=== PATIENT | female | born 1985 | race Caucasian/White ===

== ENCOUNTER 2021-07-03 12:54 | Emergency (ER) | payer BC, SELFPAY ==
[2021-07-03] VITALS (20 sets, daily range): BP systolic 101–127; BP diastolic 57–83; PULSE 83–116; RESP 11–29; TEMP 36.8–36.9; O2SAT 95–100
--- NOTE | 2021-07-03 14:19 | ECG_ITS ---
Measurements Intervals [place] Rate: 90 P: 77 MO: 140 QRS: 77 QRSD: 89 T: 17 QT: 386 QTc: 474 Interpretive Statements SINUS RHYTHM POSSIBLE LEFT ATRIAL ENLARGEMENT INCOMPLETE RIGHT BUNDLE BRANCH BLOCK BORDERLINE T WAVE ABNORMALITY- INFERIOR LEADS BORDERLINE ECG Electronically Signed On 07-03-2021 15:08:35 CDT by Henry Valiente D.O.
--- NOTE | 2021-07-03 16:06 | ED.SYNCOPE ---
HPI - Syncope General Chief Complaint: Syncope Stated Complaint: PASSED OUT DURING BLOOD DRAW Time Seen by Provider: 07/03/21 15:25 Source: patient and RN notes reviewed Mode of arrival: ambulatory Limitations: no limitations History of Present Illness HPI narrative: This is a 35 year old female who presents for evaluation of a syncopal episode . 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 She was getting labs drawn when she develop lightheadedness, nausea, flushing and she passed out. She states when she came to EMS had already arrived. She denies history of syncope. She denies chest pain, shortness of breath, nausea, vomiting, abdominal pain. Her last menstrual period was 2 weeks ago and she reports it was heavier than normal. She denies dizziness currently. She is tachycardic but she reports her heart rate is elevated because she is nervous about having blood drawn. Patient admits she has not eaten today. Related Data Home Medications Medication Instructions Recorded Confirmed levothyroxine 75 mcg PO DAILY 07/03/21 Allergies Allergy/AdvReac Type Severity Reaction Status Date / Time amoxicillin Allergy Rash Verified 07/03/21 15:24 Penicillins Allergy Rash Verified 07/03/21 15:24 Review of Systems Review of Systems: All systems reviewed & are unremarkable except as noted in HPI and below PMFSH Past Medical History Medical History (Updated 07/03/21 @ 17:09 by Brittany Patterson MD) Patient denies medical problems Surgical History Surgical History (Updated 07/03/21 @ 17:06 by Brittany Patterson MD) No pertinent past surgical history Social History Social History (Updated 07/03/21 @ 17:06 by Brittany Patterson MD) Smoking status: Never smoker Exam Const: General: no acute distress and alert Orientation/consciousness: patient oriented x3 Eyes: EOM: EOMs intact bilaterally Resp: Effort & Inspection: normal respiratory effort and no retractions Auscultation: clear to auscultation bilaterally Cardio: Rate: tachycardic Rhythm: regular rhythm Heart sounds: no murmurs GI: GI Palp: Yes Soft to palpation, No Tenderness to palpation present (GI) and No Guarding due to palpation present (GI) Auscultation: normal bowel sounds Back/Spine/Pelvis: Back: no CVA tenderness Skin: General skin exam: normal color Rashes: no rashes Neuro: General: patient oriented x3, moves all extremities and CN's II-XI intact bilaterally Extrem: General: normal to inspection Psych: Mental Status: mental status grossly normal Affect: normal affect Course Reevaluation(s) Reevaluation #1: PAtient has no complaints. HR has decreased to 87 after IVF. She likely vasovagal due to blood draw. PAtient had mild headache with no focal findings. This is likely due to her not eating today and dehydration. Date: 07/03/21 Time: 17:07 Vital Signs Vital signs: Vital Signs Temperature 98.5 F 07/03/21 13:12 Pulse Rate 105 H 07/03/21 13:12 Respiratory Rate 14 07/03/21 13:12 Blood Pressure 125/67 07/03/21 13:12 Pulse Oximetry 95 07/03/21 13:12 Temperature 98.4 F 07/03/21 17:35 Pulse Rate 90 07/03/21 17:35 Respiratory Rate 17 07/03/21 17:35 Blood Pressure 113/65 07/03/21 17:35 Pulse Oximetry 100 07/03/21 17:35 MDM - Syncope Lab Data Attestation: I reviewed the patient's lab results. Result diagrams: 07/03/21 15:55 07/03/21 15:55 Labs: Lab Results 07/03/21 07/03/21 07/03/21 Range/Units 15:55 15:55 15:55 WBC 9.0 (4.5-10.0) K/mm3 RBC 4.09 L (4.2-5.4) M/mm3 Hgb 13.3 (12.0-15.0) g/dL Hct 40.0 (37.0-47.0) % MCV 97.8 (80-100) fl MCH 32.5 (26-34) pg MCHC 33.3 (32-36) g/dl RDW 12.3 (11.5-14.5) % Plt Count 386 H (150-375) k/mm3 MPV 9.4 (7.4-10.4) fl Immature Gran % (Auto) 0.4 (0-0.5) % Neut % (Auto) 80.9 H (45.5-73.1) % Lymph % (Auto)
[2021-07-03 16:20] LABS: Basophils Percent Auto 0.3 % (0.2-1.2); Eosinophils Percent Auto 0.1 % (0-4.4); Hemoglobin 13.3 g/dL (12.0-15.0); Immature Granulocyte Absolute 0.04 K/mm3 (0.00-0.031); Immature Granulocyte Percent A 0.4 % (0-0.5); Lymphocytes Absolute Auto 1.33 K/mm3 (0.9-3.2); Lymphocytes Percent Auto 14.8 % (18.3-44.2); Mean Corpuscular HGB Conc 33.3 g/dl (32-36); Mean Corpuscular Hemoglobin 32.5 pg (26-34); Mean Corpuscular Volume 97.8 fl (80-100); Mean Platelet Volume 9.4 fl (7.4-10.4); Monocytes Absolute Auto 0.3 K/mm3 (0.1-0.6); Monocytes Percent Auto 3.5 % (2.6-8.5); Neutrophils Absolute Auto 7.2 K/mm3 (1.3-6.7); Neutrophils Percent Auto 80.9 % (45.5-73.1); Platelet Count Result 386 k/mm3 (150-375); Red Blood Count 4.09 M/mm3 (4.2-5.4); Red Cell Distribution Width 12.3 % (11.5-14.5)
[2021-07-03] MEDS: SODIUM CHLORIDE 0.9% IV 1,000 ML 999 ML IV CONT (16:20)
[2021-07-03 16:24] LABS: Add Urine Microscopic? YES; Appearance Urine Clear (Clear); Bilirubin Urine Negative (Negative); Blood Urine Negative (Negative); Color Urine Yellow (Yellow); Glucose Urine UA Negative (Negative); Ketones Urine 1+ mg/dL (Negative); Leukocyte Esterase Ur Negative LEU/UL (Negative); Mucus Urine Rare /lpf; Nitrate Urine Negative (Negative); Protein Urine Negative (Negative); RBC Urine 0-2 /hpf (0-2); Specific Grav Ur 1.013 (1.001-1.035); Squamous Epithelial Cell Urine Few /hpf (Few); Urobilinogen Urine Negative mg/dL (<2.0); WBC Urine 0-3 /hpf
[2021-07-03 16:28] LABS: Partial Thromboplastin Time 24.7 SECONDS (22.3-36.8)
[2021-07-03 16:34] LABS: Lactic Acid Reflex 1.2 mmol/L (0.7-2.1)
[2021-07-03 16:42] LABS: Magnesium 1.9 mg/dL (1.6-2.3)
[2021-07-03 16:43] LABS: Anion Gap 6 mmol/L (8-16); Blood Urea Nitrogen 9 mg/dL (7-17); Carbon Dioxide 29 mmol/L (22-30); Chloride 103 mmol/L (98-107); Estimated CRCL calculation 89 ml/min; Estimated Glomerular Filt Rate > 60; Glucose 175 mg/dL (65-110); Potassium 4.7 mmol/L (3.4-5.0); Sodium 138 mmol/L (137-145)
[2021-07-03 16:53] LABS: D Dimer 0.27 ug/mL (<0.48)
== END 2021-07-03 17:47 | disposition home or self-care (01) ==
PROVIDERS: Emergency Provider General Practice; PCP Internal Medicine
DX: R55 Syncope and collapse (principal); I45.10 Unspecified right bundle-branch block
CPT/HCPCS: 36415; 80048; 81001; 81025; 83605; 83735; 85025; 85380; 85610; 85730; 93005; 96360; 99284; J7030